=== PATIENT | female | born 1930 | race African-American/Black ===

== ENCOUNTER 2021-02-13 13:50 | Emergency (ER) | payer OTHER ==
[~2021-02-13] VITALS: Ht 165.1 cm; Wt 74.0 kg
[2021-02-13] MEDS ORDERED: HYDROCODONE/ACETAMINOPHEN 10/325MG TABLET PO ONE (14:45)
[2021-02-13 15:24] LABS: CHLORIDE 106 mEq/L (98-107)
[2021-02-13 15:28] LABS: HEMATOCRIT. 34.8 % (36.0-48.0); HEMOGLOBIN. 11.5 g/dL (12.0-16.0); MEAN CORPUSCULAR HEMOGLOBIN 30.7 pg (28.0-32.0); MEAN CORPUSCULAR VOLUME 92.6 fL (81.0-99.0); MEAN PLATELET VOLUME 9.3 fl (7.4-10.4); PLATELET 143 x1000/uL (130-400); RED BLOOD CELL COUNT 3.76 mill/uL (4.2-5.4); RED CELL DISTRIBUTION WIDTH 16.1 % (11.6-14.6)
[2021-02-13] MEDS ORDERED: CEFTRIAXONE 1 G PREMIX 50 ML IV ONE (16:00)
[2021-02-13] MEDS ORDERED: VANCOMYCIN 1 G PREMIX 200 ML IV ONE (16:00)
[2021-02-13] MEDS ORDERED: SODIUM CHLORIDE 0.9% 1000ML BAG (SEPSIS BOLUS) IV ONE (16:00)
[2021-02-13 16:41] LABS: INR 2.1; PROTHROMBIN TIME 21.3 sec (9.6-11.0)
[2021-02-13 16:46] LABS: PLATELET ESTIMATE NORMAL
[2021-02-13 18:05] LABS: CLARITY URINE CLOUDY (CLEAR); COLOR URINE YELLOW (YELLOW); KETONES URINE NEGATIVE (NEGATIVE); LEUKOCYTE ESTERASE URINE NEGATIVE (NEGATIVE); NITRITE URINE NEGATIVE (NEGATIVE); OCCULT BLOOD URINE 1+ (NEGATIVE); PROTEIN URINE TRACE (NEGATIVE)
[2021-02-13] MEDS ORDERED: AZITHROMYCIN 500 MG in DEXT 5% WATER 250 ML IV NR (18:30)
[2021-02-13] MEDS ORDERED: METRONIDAZOLE 500 MG PREMIX 100 ML IV ONE (20:45)
[2021-02-13 22:00] VITALS: BP 126/91
== END 2021-02-13 22:50 | disposition admitted as inpatient to this hospital (09) ==
LOC: ER 13:50 → CANBEDREQ 17:40 → ER 22:50
DX: A41.9 Sepsis, unspecified organism (principal); M25.552 Pain in left hip; M06.9 Rheumatoid arthritis, unspecified; Z20.822 Contact with and (suspected) exposure to COVID-19
CPT/HCPCS: 36415; 71045; 73502; 74176; 76881; 80053; 81003; 83605; 84145; 85025; 85610; 85651; 86140; 87040; 87086; 87426; 93005; 96365; 96367; 96375; 99285; J0456; J0696; J3370; J3490; J7030; J7060